=== PATIENT | male | born 1950 | race Caucasian/White ===

== ENCOUNTER 2018-09-09 08:02 | Emergency (ER) | payer MEDICARE ==
[2018-09-09 08:28] VITALS: BP 148/77
[2018-09-09] MEDS ORDERED: Lidocaine 1% MPF ** 5 ML VIAL INJ ONE (08:52)
--- NOTE | 2018-09-09 08:59 | UC ---
Laceration HPI - HPI Summary HPI Summary: 68 yo male was working on his house Fell backwards and sustained a laceration to his right Index finger and left thumb He is sure that his immunizations are UTD denies other injuries from fall occurred just prior to arrival - History Of Current Complaint Chief Complaint: UCLaceration Stated Complaint: LEFT THUMB LAC Time Seen by Provider: 09/09/18 08:46 Hx Obtained From: Patient Laceration Location: Finger Mechanism Of Injury: Sharp Trauma Onset/Duration: Sudden Onset Pain Intensity: 0 Pain Scale Used: 0-10 Numeric Aggravating Factors: Nothing Hands: 1 - superficial lac 2 - lac which will be sutured - Allergies/Home Medications Allergies/Adverse Reactions: Allergies Allergy/AdvReac Type Severity Reaction Status Date / Time No Known Allergies Allergy Verified 09/09/18 08:22 Home Medications: Home Medications Malaria Med For Ra 2 tab PO BID 09/09/18 [History] Metoprolol Tartrate TAB* [Lopressor TAB*] 50 mg PO DAILY 09/09/18 [History Confirmed 09/09/18] Propranolol TAB* [Inderal TAB*] 10 mg PO DAILY 09/09/18 [History Confirmed 09/09] PMH/Surg Hx/FS Hx/Imm Hx Previously Healthy: Yes - RA Cardiovascular History: Hypertension - Surgical History Surgical History: Yes Surgery Procedure, Year, and Place: nasal for deviated septum - Family History Known Family History: Negative: Cardiac Disease, Hypertension - Social History Alcohol Use: Occasionally Substance Use Type: None Smoking Status (MU): Never Smoked Tobacco - Immunization History Most Recent Tetanus Shot: unknown Review of Systems All Other Systems Reviewed And Are Negative: Yes Constitutional: Positive: Negative Skin: Positive: Negative Eyes: Positive: Negative ENT: Positive: Negative Respiratory: Positive: Negative Cardiovascular: Positive: Negative Gastrointestinal: Positive: Negative Genitourinary: Positive: Negative Motor: Positive: Negative Neurovascular: Positive: Negative Musculoskeletal: Positive: Negative Neurological: Positive: Negative Psychological: Positive: Negative Physical Exam Triage Information Reviewed: Yes Appearance: Well-Appearing, No Pain Distress, Well-Nourished Vital Signs: Initial Vital Signs Temp 98.3 F 09/09/18 08:23 Pulse 53 09/09/18 08:23 Resp 16 09/09/18 08:23 BP 148/77 09/09/18 08:23 Pulse Ox 100 09/09/18 08:23 Vital Signs Reviewed: Yes Eyes: Positive: Conjunctiva Clear ENT: Positive: Hearing grossly normal. Negative: Nasal congestion, Nasal drainage, Trismus, Muffled voice, Hoarse voice Dental Exam: Normal Neck: Positive: Supple, Nontender, No Lymphadenopathy Respiratory: Positive: Lungs clear, Normal breath sounds, No respiratory distress, No accessory muscle use, Respiratory distress Cardiovascular: Positive: RRR, No Murmur Abdomen Description: Positive: Nontender, No Organomegaly, Soft. Negative: CVA Tenderness (R), CVA Tenderness (L) Bowel Sounds: Positive: Present Musculoskeletal: Positive: ROM Intact, No Edema Neurological: Positive: Alert Psychological Exam: Normal Skin Exam: Other - lac x 2 Laceration Repair - Laceration Repair 1 Procedure Summary: repair right index finger Description: Linear Laceration Size After Repair: Length (cm) - 1.3, Width (mm) - 1, Depth (mm) - 1 Modified For Repair: No Cleansing Completed Via Routine Prep: Yes Irrigation With Pressure Irrigation Device: Yes Closure Material: Skin Adhesive 2 Description: Irregular - curvilinear flap Laceration Size After Repair: Length (cm) - 2.7, Width (mm) - 2, Depth (mm) - 3 Modified For Repair: No Anesthesia Used: 1.0% Lido Cleansing Completed Via Routine Prep: Yes Irrigation With Pressure Irrigation Device: Yes Closure Material: SteriStrips - on superifical flap, Sutures Closure Method: Single Layer Suture Of: Skin Suture Type: Nylon - 4- 5-0 nylon Laceration Course/Dx - Diagnosis Provider Diagnosis: Laceration of left thumb, Laceration of right index finger Discharge - Sign-Out/Discharge Documenting (check all that apply): Patient Departure All imaging exams completed and their final reports reviewed: No Studies - Discharge Plan Condition: Stable Disposition: HOME Patient Education Materials: Skin Adhesive Care (ED), Laceration (ED) Referrals: Non Staff,Doctor [Primary Care Provider] - Additional Instructions: recheck for any concerns of infection sutures should be removed in about 10 days - Billing Disposition and Condition Condition: STABLE Disposition: Home
== END 2018-09-09 09:53 | disposition home or self-care (01) ==
LOC: UCCORT 08:02
DX: S61.210A Laceration without foreign body of right index finger without damage to nail, initial encounter (principal); S61.012A Laceration without foreign body of left thumb without damage to nail, initial encounter; W18.30XA Fall on same level, unspecified, initial encounter; Y93.H9 Activity, other involving exterior property and land maintenance, building and construction; Y92.018 Other place in single-family (private) house as the place of occurrence of the external cause; Y99.8 Other external cause status; I10 Essential (primary) hypertension; M06.9 Rheumatoid arthritis, unspecified
CPT/HCPCS: 12001; 99201; G0463

== ENCOUNTER 2018-09-23 09:26 | Emergency (ER) | payer MEDICARE ==
[2018-09-23 09:48] VITALS: BP 131/77
--- NOTE | 2018-09-23 09:48 | UC ---
Skin Complaint HPI - HPI Summary HPI Summary: 68-year-old male comes in with a chief complaint of encounter for suture removals from his right left thumb. Patient had 4 sutures placed in a 2.7 cm long laceration here on September 09, 2018. The laceration is healed up nicely denies any signs of infection or decreased range of motion and or decreased sensation. No drainage. - History of Current Complaint Time Seen by Provider: 09/23/18 09:45 Stated Complaint: SUTURE REMOVAL/LEFT MIDDLE FINGER - Allergy/Home Medications Allergies/Adverse Reactions: Allergies Allergy/AdvReac Type Severity Reaction Status Date / Time No Known Allergies Allergy Verified 09/23/18 09:46 PMH/Surg Hx/FS Hx/Imm Hx Previously Healthy: Yes Cardiovascular History: Hypertension - Surgical History Surgical History: Yes Surgery Procedure, Year, and Place: nasal for deviated septum - Family History Known Family History: Negative: Cardiac Disease, Hypertension - Social History Alcohol Use: Occasionally Substance Use Type: None Smoking Status (MU): Never Smoked Tobacco - Immunization History Most Recent Tetanus Shot: unknown Review of Systems All Other Systems Reviewed And Are Negative: Yes Constitutional: Positive: Negative Skin: Positive: Other - SEE HPI Eyes: Positive: Negative ENT: Positive: Negative Respiratory: Positive: Negative Cardiovascular: Positive: Negative Gastrointestinal: Positive: Negative Motor: Positive: Negative Neurovascular: Positive: Negative Musculoskeletal: Positive: Negative Neurological: Positive: Negative Psychological: Positive: Negative Is Patient Immunocompromised?: No Physical Exam Triage Information Reviewed: Yes Appearance: Well-Appearing, No Pain Distress, Well-Nourished Vital Signs Reviewed: Yes Eye Exam: Normal Eyes: Positive: Conjunctiva Clear Neck: Positive: Supple Respiratory: Positive: No respiratory distress Musculoskeletal: Positive: Strength Intact, ROM Intact Neurological: Positive: Alert Psychological: Positive: Age Appropriate Behavior Skin: Positive: Other - At the base of the left thumb there is a 2.7 cm healed laceration with 4 simple interrupted sutures which I removed. No erythema no drainage. The thumb has full range of motion normal sensation. Course/Dx - Diagnoses Provider Diagnosis: Encounter for removal of sutures Discharge - Sign-Out/Discharge Documenting (check all that apply): Patient Departure All imaging exams completed and their final reports reviewed: No Studies - Discharge Plan Condition: Stable Disposition: HOME Patient Education Materials: Stitches Removal (ED) Referrals: Marcio Deluna MD [Primary Care Provider] - Additional Instructions: FOLLOW UP WITH YOUR DOCTOR IF NOT COMPLETELY IMPROVED. GET REEVALUATED SOONER IF WORSE OR ANY QUESTIONS OR CONCERNS. - Billing Disposition and Condition Condition: STABLE Disposition: Home
== END 2018-09-23 09:55 | disposition home or self-care (01) ==
LOC: UCCORT 09:26
DX: S61.011D Laceration without foreign body of right thumb without damage to nail, subsequent encounter (principal); X58.XXXD Exposure to other specified factors, subsequent encounter; I10 Essential (primary) hypertension